=== PATIENT | male | born 1955 | race Caucasian/White ===

== ENCOUNTER 2019-09-09 13:43 | Outpatient (CLI) | payer BC, SELFPAY ==
--- NOTE | ~2019-09-09 | CT_ITS ---
EXAMINATION: CT lung screening DATE: 09/09/2019 14:13 INDICATION: Personal history of tobacco dependence, current smoker with 40 pack year history TECHNIQUE: Computed tomography (CT) of the chest was performed without intravenous contrast. The dose -length product (DLP) was 114.71 mGy-cm. Automated exposure control and iterative reconstruction tech [employer] were employed. COMPARISON: None FINDINGS: There is moderate emphysema. No suspicious pulmonary nodules are identified. The lungs are free of focal airspace opacities. There is no pleural effusion or pneumothorax. No pathologically enl arged thoracic lymph nodes are identified. The heart size is normal. There is calcified coronary abelino ry atherosclerosis. Incidental note is made of a diverticulum projecting from the posterior fundus of the stomach. There are bridging osteophytes at multiple levels in the spine, consistent with diffuse idiopathic skeletal hyperostosis (DISH). IMPRESSION: 1. Lung-RADS category 1: Negative. Continue annual screening with noncontrast low-dose chest CT in 12 months. Reviewed, dictated and finalized at location A. IMPRESSION: 1. Lung-RADS category 1: Negative. Continue annual screening with noncontrast l ow-dose chest CT in 12 months.
== END 2019-09-09 13:44 | disposition home or self-care (01) ==
PROVIDERS: PCP Family Medicine; Visit Provider Physician Assistant
DX: Z12.2 Encounter for screening for malignant neoplasm of respiratory organs (principal); F17.200 Nicotine dependence, unspecified, uncomplicated
CPT/HCPCS: G0297

== ENCOUNTER 2020-05-27 15:35 | Outpatient (CLI) | payer BC, SELFPAY ==
[2020-05-27 17:01] LABS: Erythrocyte Sedimentation Rate 36 mm/hr (0-20)
[2020-05-27 17:30] LABS: CRP 1.7 mg/dL (<1.0)
== END 2020-05-27 15:36 | disposition home or self-care (01) ==
LOC: ANHLAB 15:38
PROVIDERS: PCP Family Medicine; Visit Provider Orthopaedic Surgery
DX: T85.698A Other mechanical complication of other specified internal prosthetic devices, implants and grafts, initial encounter (principal); T84.039A Mechanical loosening of unspecified internal prosthetic joint, initial encounter
CPT/HCPCS: 36415; 85652; 86140

== ENCOUNTER 2020-06-10 15:43 | Outpatient (CLI) | payer BC, SELFPAY ==
--- NOTE | ~2020-06-10 | CT_ITS ---
EXAMINATION: CT knee RT wo con DATE: 06/10/2020 16:08 INDICATION: Chemical complication of implant at the right knee TECHNIQUE: High resolution computed tomography (CT) of the right knee was performed without intraveno us contrast. Additional sagittal and coronal reconstructions were performed. Automated exposure contr ol and iterative reconstruction technique were employed. The dose-length product was 586.69 mGy-cm. COMPARISON: Right knee radiograph dated 08/14/2017 FINDINGS: Right total knee arthroplasty with patellar resurfacing. Alignment appears near-anatomic and unchange d. No fracture. The femoral component appears well seated with no periprosthetic lucency to suggest l oosening. There are small regions of increased lucency underlying the medial margin of the trachea of the tibial component which measure up to 4 mm in maximal thickness. More diffuse thin band of lucenc y measuring up to 2-3 mm underlying the posterior aspect of the tibial tray, both at the medial and l ateral tibial plateaus. There are however spiculated bony trabecula which appear to cross the regions of increased lucency to contact the tibial tray which would argue against loosening or infection. Ve ry small right knee joint effusion at the suprapatellar pouch. Soft tissues are otherwise unremarkabl e. IMPRESSION: 1. Nonspecific very small right knee joint effusion. 2. Right total knee arthroplasty with small regions of increased lucency along the medial and posteri or aspects of the tibial tray but with intact bony trabecular appearing to cross portions of the jose on of increased lucency and loosening or infection/osteomyelitis is considered unlikely. Reviewed, dictated and finalized at location A. IMPRESSION: 1. Nonspecific very small right knee joint effusion. 2. Right total knee arthroplasty with small regions of increased lucency along the medial and posterior aspects of the tibial tray but with intact bony trabec ular appearing to cross portions of the region of increased lucency and looseni ng or infection/osteomyelitis is considered unlikely.
== END 2020-06-10 15:44 | disposition home or self-care (01) ==
PROVIDERS: PCP Family Medicine; Visit Provider Orthopaedic Surgery
DX: T84.032A Mechanical loosening of internal right knee prosthetic joint, initial encounter (principal); Y83.8 Other surgical procedures as the cause of abnormal reaction of the patient, or of later complication, without mention of misadventure at the time of the procedure; M25.461 Effusion, right knee
CPT/HCPCS: 73700

== ENCOUNTER 2020-07-28 06:51 | Outpatient (CLI) | payer BC, SELFPAY ==
--- NOTE | ~2020-07-28 | NM_ITS ---
EXAMINATION: NM bone 3 phase DATE: 07/28/2020 09:44 INDICATION: Mechanical comp cases of implant at the right knee. TECHNIQUE: 27.5 mCi Tc-99m HDP by intravenous route. Scintigrams of the bilateral knees were obtaine d in angiographic, blood pool, and delayed phases. COMPARISON: CT dated 06/10/2020 FINDINGS: Photopenic defects at both knees consistent with bilateral total knee arthroplasties. There is relati vely symmetric distribution of activity in both knees on the early angiographic phase images. There i s asymmetric increased uptake on the immediate blood pool images which becomes more prominent on the delayed images at the right medial tibial plateau underlying the tibial tray of the arthroplasty. Thi s corresponds to a region of increased lucency on the prior CT which suggests loosening. IMPRESSION: 1. Moderate asymmetric increased uptake underlying the medial tibial tray of a right total knee arth roplasty with corresponding periprosthetic lucency on prior CT which is suspicious for loosening. No associated asymmetric hyperemia on the angiographic phase images to suggest acute inflammation such a s in the setting of infection or fracture. Reviewed, dictated and finalized at location A. IMPRESSION: 1. Moderate asymmetric increased uptake underlying the medial tibial tray of a right total knee arthroplasty with corresponding periprosthetic lucency on ronald or CT which is suspicious for loosening. No associated asymmetric hyperemia on the angiographic phase images to suggest acute inflammation such as in the sett ing of infection or fracture.
== END 2020-07-28 06:52 | disposition home or self-care (01) ==
LOC: ANHIMG 06:57
PROVIDERS: PCP Family Medicine; Visit Provider Orthopaedic Surgery
DX: T85.698A Other mechanical complication of other specified internal prosthetic devices, implants and grafts, initial encounter (principal); T84.039A Mechanical loosening of unspecified internal prosthetic joint, initial encounter
CPT/HCPCS: 78315; A9561

== ENCOUNTER 2020-08-09 12:51 | Outpatient (CLI) | payer BC, SELFPAY ==
--- NOTE | ~2020-08-09 | US_ITS ---
EXAMINATION: US knee asp inj w image RT DATE: 08/09/2020 14:00 INDICATION: Mechanical complication of a right total knee arthroplasty with right knee pain. TECHNIQUE: The procedure including the risks and benefits was discussed with the patient. Risks discu ssed included bleeding and infection. The patient understood the risks and agreed to proceed. The sk in overlying the suprapatellar pouch of the right knee was prepped and draped in usual sterile fashio n. Anesthetic was administered with 1% lidocaine subcutaneously. An 22 gauge core biopsy needle was advanced under continuous ultrasound observation into the fluid at the suprapatellar pouch. 21 mL of slightly viscous, relatively clear yellow fluid was aspirated and sent to the lab for studies as ord ered by the referring physician. The needle was removed and the entry site was cleaned and dressed. Post procedure ultrasound demonstrated no hemorrhage. FINDINGS: Ultrasound images demonstrate aspiration needle within a small amount of fluid at the supra patellar pouch. Post drainage images demonstrate approximately 4 mm of thickened hypoechoic synovium on either side of the negligible amount of residual fluid. IMPRESSION: 1. Successful Ultrasound-guided right knee aspiration. Reviewed, dictated and finalized at location A.
[2020-08-09 20:19] LABS: Crystals Synovial Fluid None Seen (None Seen)
== END 2020-08-09 12:52 | disposition home or self-care (01) ==
PROVIDERS: PCP Family Medicine; Visit Provider Orthopaedic Surgery
DX: T85.698A Other mechanical complication of other specified internal prosthetic devices, implants and grafts, initial encounter (principal)
CPT/HCPCS: 20611; 87070; 87075; 87205; 89060

== ENCOUNTER → 2020-09-26 11:35 | Outpatient (CLI) | payer BC, SELFPAY ==
--- NOTE | ~2020-09-26 | CT_ITS ---
EXAMINATION:CT lung screening DATE: 09/26/2020 11:49 INDICATION: Personal history of tobacco dependence. Current smoker with 60 pack year history. TECHNIQUE: Computed tomography (CT) of the chest was performed without intravenous contrast. Automate d exposure control and iterative reconstruction technique were employed. The dose-length product (DLP ) was 180.53 mGy-cm. COMPARISON: Chest CT 09/09/2019 FINDINGS: There is mild emphysema. No pleural effusion. The heart size is normal. There are coronary artery calcifications. No pericardial effusion. There is mild thoracic spondylosis. There is a chroni c burst fracture of T3. IMPRESSION: 1. Lung-RADS category 1: Negative. Continue annual screening with noncontrast low-dose chest CT in 12 months. Reviewed, dictated and finalized at location A. IMPRESSION: 1. Lung-RADS category 1: Negative. Continue annual screening with noncontrast l ow-dose chest CT in 12 months.
== END ==
PROVIDERS: PCP Family Medicine; Visit Provider Physician Assistant
DX: Z12.2 Encounter for screening for malignant neoplasm of respiratory organs (principal); Z87.891 Personal history of nicotine dependence
CPT/HCPCS: 71271

== ENCOUNTER 2021-04-10 08:23 | Outpatient (CLI) | payer OTHER, SELFPAY ==
--- NOTE | ~2021-04-10 | NM_ITS ---
EXAMINATION: NM bone 3 phase DATE: 04/10/2021 12:22 INDICATION: Mechanical complication of implant. TECHNIQUE: 23 mCi Tc-99m HDP was administered intravenously. Scintigrams of the knees were obtained i n angiographic, blood pool, and delayed phases. COMPARISON: Right knee CT 06/10/2020, bone scan 07/28/2020, bilateral knee radiographs 08/14/2017 FINDINGS: Right knee demonstrates increased activity in distal femur, proximal tibia, and patella adj acent to the arthroplasty, worst at the proximal tibia. Left knee demonstrates increased activity in distal femur, proximal tibia, and patella adjacent to the arthroplasty. IMPRESSION: 1. Bilateral total knee arthroplasties with increased activity adjacent to the arthroplasties, which is very nonspecific and can be normal. The differential diagnosis includes loosening, infection, and normal variant. Correlation with repeat knee radiographs is recommended. Reviewed, dictated and finalized at location A. ER HELPER IMPRESSION: 1. Bilateral total knee arthroplasties with increased activity adjacent to the arthroplasties, which is very nonspecific and can be normal. The differential diagnosis includes loosening, infection, and normal variant. Correlation with r epeat knee radiographs is recommended.
== END 2021-04-10 08:24 | disposition home or self-care (01) ==
LOC: ANHIMG 08:28
PROVIDERS: PCP Family Medicine; Visit Provider Orthopaedic Surgery
DX: T85.698A Other mechanical complication of other specified internal prosthetic devices, implants and grafts, initial encounter (principal)
CPT/HCPCS: 78315; A9561

== ENCOUNTER 2021-04-17 10:25 | Outpatient (CLI) | payer OTHER, SELFPAY ==
[2021-04-17 12:40] LABS: Erythrocyte Sedimentation Rate 17 mm/hr (0-20)
== END 2021-04-17 10:26 | disposition home or self-care (01) ==
PROVIDERS: PCP Family Medicine; Visit Provider Orthopaedic Surgery
DX: T85.698D Other mechanical complication of other specified internal prosthetic devices, implants and grafts, subsequent encounter (principal)
CPT/HCPCS: 36415; 85652; 86140

== ENCOUNTER 2021-05-01 10:17 | Outpatient (CLI) | payer OTHER, SELFPAY ==
--- NOTE | ~2021-05-01 | US_ITS ---
EXAMINATION: US knee asp inj w image RT DATE: 05/01/2021 11:20 INDICATION: Other mechanical complication of prosthetic devices. TECHNIQUE: The procedure including the risks, benefits, and alternatives was discussed with the patie nt. Risks discussed included bleeding and infection. The patient understood the risks and agreed to p roceed. The skin overlying the right knee was prepped and draped in usual sterile fashion. Anestheti c was administered with 1% lidocaine subcutaneously. An 18 gauge spinal needle inserted into the kne e joint with sonographic guidance. Fluid was aspirated. The entry site was cleaned and dressed. Ther e were no immediate complications. FINDINGS: Ultrasound images demonstrate a right knee joint effusion. IMPRESSION: 1. Ultrasound-guided needle aspiration of 28 mL clear, yellow fluid from the right knee joint. Reviewed, dictated and finalized at location A. 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 Ultrasound-guided needle aspiration of 28 mL clear, yellow fluid from the ri t knee joint.
[2021-05-01 13:57] LABS: Appearance Synovial Fluid Hazy (Clear); Color Synovial Fluid Yellow (Colorless); Source Synovial Fluid Synovial fluid
[2021-05-01 13:58] LABS: Nucleated Cell Synovial Fluid 168 /uL (0-200)
[2021-05-01 13:59] LABS: RBC Synovial Fluid 1735 /uL (0-0)
[2021-05-01 14:18] LABS: Lymphocytes Synovial Fluid 86 %; Macrophages Synovial Fluid 6 %; Neutrophils Synovial Fluid 8 % (0-25)
== END 2021-05-01 10:18 | disposition home or self-care (01) ==
PROVIDERS: PCP Family Medicine; Visit Provider Orthopaedic Surgery
DX: T85.698D Other mechanical complication of other specified internal prosthetic devices, implants and grafts, subsequent encounter (principal)
CPT/HCPCS: 20611; 87070; 87075; 87205; 89051

== ENCOUNTER 2021-05-12 13:30 | Outpatient (CLI) | payer OTHER, SELFPAY ==
--- NOTE | ~2021-05-12 | CT_ITS ---
EXAMINATION: CT knee RT wo con DATE: 05/12/2021 14:02 INDICATION: Mechanical complication of implant. Right knee pain. TECHNIQUE: Computed tomography (CT) of the right knee was performed without intravenous contrast. Aut omated exposure control and iterative reconstruction technique were employed. The dose-length product was 402.27 mGy-cm. COMPARISON: Right knee CT 06/10/2020, bone scan 04/10/2021 FINDINGS: There is a total right knee arthroplasty with patellar resurfacing in near-anatomic alignme nt. No periprosthetic lucency to suggest loosening or infection. No fracture. There is a small knee j oint effusion. IMPRESSION: 1. Total right knee arthroplasty in near-anatomic alignment. 2. Small right knee joint effusion. Reviewed, dictated and finalized at location A. 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
== END 2021-05-12 13:31 | disposition home or self-care (01) ==
LOC: ANHIMG 13:38
PROVIDERS: PCP Family Medicine; Visit Provider Orthopaedic Surgery
DX: T85.698D Other mechanical complication of other specified internal prosthetic devices, implants and grafts, subsequent encounter (principal); M25.461 Effusion, right knee
CPT/HCPCS: 73700

== ENCOUNTER → 2021-10-02 09:41 | Outpatient (CLI) | payer OTHER, SELFPAY ==
--- NOTE | ~2021-10-02 | CT_ITS ---
EXAMINATION: CT lung screening DATE: 10/02/2021 09:53 INDICATION: tobacco use TECHNIQUE: Computed tomography (CT) of the chest was performed without intravenous contrast. Addition al 3D reconstructions utilizing coronal maximum intensity projection (MIP) were performed. Automated exposure control and iterative reconstruction technique were employed. The dose-length product was 10 1.28 mGy-cm. COMPARISON: 09/26/2020 FINDINGS: Mild emphysema. No suspicious pulmonary nodules, pneumonia, pulmonary edema or pleural effusion. Hear t size is normal. Atherosclerotic coronary artery calcifications. No pericardial effusion. Thoracic a sadaf is normal in caliber. No pathologically enlarged thoracic lymphadenopathy. 2.3 x 1.3 cm low-atte nuation left adrenal adenoma. Diffuse osteopenia with chronic T3 compression fracture with 50% anteri or vertebral body height loss. There are bridging osteophytes at multiple levels in the spine, consis tent with diffuse idiopathic skeletal hyperostosis (DISH). IMPRESSION: 1. Lung-RADS category 1: Negative. Continue annual screening with noncontrast low-dose chest CT in 12 months. Reviewed, dictated and finalized at location A. IMPRESSION: 1. Lung-RADS category 1: Negative. Continue annual screening with noncontrast l ow-dose chest CT in 12 months.
== END ==
PROVIDERS: PCP Family Medicine; Visit Provider Physician Assistant
DX: Z12.2 Encounter for screening for malignant neoplasm of respiratory organs (principal); Z87.891 Personal history of nicotine dependence
CPT/HCPCS: 71271

== ENCOUNTER 2022-10-10 10:09 | Outpatient (CLI) | payer OTHER, SELFPAY ==
--- NOTE | ~2022-10-10 | US_ITS ---
US renal BI 10/10/2022 11:04 Procedure: Realtime transabdominal ultrasound of the kidneys and bladder. Indication: Chronic kidney disease Comparison: 08/16/2017 Findings: Renal echotexture is normal bilaterally without hydronephrosis, contour deforming mass or r enal calculus. The right kidney measures 9.1 cm and left kidney measures 10 cm. Bladder within robert l limits. Impression: 1: Unremarkable renal ultrasound. No stones, masses or hydronephrosis. Reviewed, dictated and finalized at location A. Impression: 1: Unremarkable renal ultrasound. No stones, masses or hydronephrosis.
== END 2022-10-10 10:10 | disposition home or self-care (01) ==
PROVIDERS: PCP Family Medicine; Visit Provider Family Medicine
DX: I13.10 Hypertensive heart and chronic kidney disease without heart failure, with stage 1 through stage 4 chronic kidney disease, or unspecified chronic kidney disease (principal); N18.30 Chronic kidney disease, stage 3 unspecified
CPT/HCPCS: 76775

== ENCOUNTER → 2022-11-20 10:11 | Outpatient (CLI) | payer OTHER, SELFPAY ==
--- NOTE | ~2022-11-20 | CT_ITS ---
EXAMINATION: CT lung screening DATE: 11/20/2022 10:22 INDICATION: Personal history of nicotine dependence, prior smoker with 40 pack year history TECHNIQUE: Computed tomography (CT) of the chest was performed without intravenous contrast. The dose -length product (DLP) was 120.07 mGy-cm. Automated exposure control and iterative reconstruction tech [employer] were employed. COMPARISON: 10/02/2021 FINDINGS: There is moderate emphysema. The lungs are free of acute opacities. No pleural effusion or pneumothorax. No suspicious pulmonary nodules are identified. No pathologically enlarged thoracic lym ph nodes are identified. The heart size is normal. Calcified coronary artery atherosclerosis is noted . There are bridging osteophytes at multiple levels in the spine, consistent with diffuse idiopathic skeletal hyperostosis (DISH). IMPRESSION: 1. Lung-RADS category 1: Negative. Continue annual screening with noncontrast low-dose chest CT in 12 months. Reviewed, dictated and finalized at location L. IMPRESSION: 1. Lung-RADS category 1: Negative. Continue annual screening with noncontrast l ow-dose chest CT in 12 months.
== END ==
PROVIDERS: PCP Family Medicine; Visit Provider Family Medicine
DX: Z12.2 Encounter for screening for malignant neoplasm of respiratory organs (principal); Z87.891 Personal history of nicotine dependence
CPT/HCPCS: 71271

== ENCOUNTER 2023-01-16 01:21 | Day surgery (SDC) | payer OTHER, SELFPAY ==
[2023-01-02 13:43] VITALS: BMI 29.9
--- NOTE | 2023-01-15 15:56 | PM.HPGS ---
History of Present Illness History of Present Illness Consent: Risks, benefits, and alternatives have been discussed and questions answered. Patient agrees to proceed with procedure. Chief complaint: hx colon polyps Narrative: Daniel Loomis is a 67 year old male referred for colon cancer screening. His last colonoscopy was 5 years ago at which time 2 polyps were removed. Review of Systems Review of Systems: All systems reviewed & are unremarkable except as noted in HPI and below PMFSH Past Medical History Medical History CKD (chronic kidney disease), stage III Hypertensive heart and CKD Family History Family History Father Family history of cardiovascular disease Social History Social History Smoking packs per day: 1 Smoking cigarettes per day: 20.0 Years smoked: 40 Smoking pack-years: 40.00 Smoking status: Former smoker Tobacco type: cigarettes Alcohol intake: current Alcohol use details: occasional Substance use: never Substance use type: does not use Living arrangements: with family Occupation/Education: retired Gender identity (if verbalized by the patient): Male Sexual Orientation (if Verbalized by the Patient): Straight or Heterosexual Spiritual care concerns: No Meds Home Medications and Allergies Home Medications Medication Instructions Recorded Confirmed Type aspirin 81 mg tablet,delayed 81 mg PO DAILY #1 tablet 02/23/21 01/16/23 Rx release amlodipine 5 mg tablet See Rx Instructions .Route 07/09/22 01/16/23 Rx .COMPLEX #90 tabs lisinopril 20 mg tablet 20 mg PO DAILY #90 tabs 11/02/22 01/16/23 Rx Allergies Allergy/AdvReac Type Severity Reaction Status Date / Time bupropion [From Wellbutrin] AdvReac Intermediate Blister Verified 01/16/23 10:31 Exam Resp: Auscultation: clear to auscultation bilaterally Cardio: Rate: regular rate Rhythm: regular rhythm GI: GI Palp: Yes Soft to palpation and No Tenderness to palpation present (GI) Assessment and Plan Assessment and plan (1) Colon cancer screening: Code(s): Z12.11 - Encounter for screening for malignant neoplasm of colon Status: Acute Assessment and Plan: Colonoscopy with possible biopsy or polypectomy or cautery or injection of substances.
[2023-01-16 10:33] VITALS: BP 144/77; PULSE 82; RESP 17; TEMP 36.6; O2SAT 98; BMI 27.5
[2023-01-16] MEDS: LACTATED RINGERS 1,000 ML 150 ML IV CONT (10:43)
--- NOTE | 2023-01-16 10:50 | P.PNAN_ITS ---
Anes - Initial Pre Proc Eval Procedure: Operation Date: 01/16/23 13:30 Proposed Procedures p Colonoscopy - Andrew Hickman MD Date/Time: 01/16/23 10:50 Surgeon: Andrew Hickman MD Pre Op Diagnosis: hx colon polyps Patient Data Age: 67 Gender: M Height: 1.68 m Weight: 77.3 kg Last Vital Signs Temp 97.9 F 01/16/23 10:33 Pulse 82 01/16/23 10:33 Resp 17 01/16/23 10:33 BP 144/77 H 01/16/23 10:33 Pulse Ox 98 01/16/23 10:33 O2 Del Method Room Air 01/16/23 10:33 Allergies Allergy/AdvReac Type Severity Reaction Status Date / Time bupropion [From Wellbutrin] AdvReac Intermediate Blister Verified 01/16/23 10:31 Home Medications Medication Instructions Recorded Confirmed Type aspirin 81 mg tablet,delayed 81 mg PO DAILY #1 tablet 02/23/21 01/16/23 Rx release amlodipine 5 mg tablet See Rx Instructions .Route 07/09/22 01/16/23 Rx .COMPLEX #90 tabs lisinopril 20 mg tablet 20 mg PO DAILY #90 tabs 11/02/22 01/16/23 Rx Patient hx anesthesia problems: none Family hx anesthesia problems: none Results Review: All pre-operative results and documents have been reviewed as part of the pre-operative evaluation. [facility] Past Medical History Medical History CKD (chronic kidney disease), stage III Hypertensive heart and CKD Family History Family History Father Family history of cardiovascular disease Social History Social History Smoking packs per day: 1 Smoking cigarettes per day: 20.0 Years smoked: 40 Smoking pack-years: 40.00 Smoking status: Former smoker Tobacco type: cigarettes Alcohol intake: current Alcohol use details: occasional Substance use: never Substance use type: does not use Living arrangements: with family Occupation/Education: retired Gender identity (if verbalized by the patient): Male Sexual Orientation (if Verbalized by the Patient): Straight or Heterosexual Spiritual care concerns: No Anes - Eval Final PreProcedure Day of Procedure 01/16/23 10:50 Patient weight: normal Heart: regular rate and rhythm Lungs: clear to auscultation Airway: Mallampati scale Neurological: alert and oriented Last oral intake: >/= 8 hours ASA classification: III Emergent: no Anesthetic plan: proceed Anesthesia type and monitoring: general GIVS and standard monitoring Results Review: All pre-operative results and documents have been reviewed as part of the pre- operative evaluation. Informed Consent: The patient's anesthetic plan and its attendant risks and benefits were discussed with the patient/family/POA. Questions were solicited and answers provided to the satisfaction of the patient/family/POA.
[2023-01-16 11:31] VITALS: BP 77/51; PULSE 82; RESP 23; O2SAT 97
[2023-01-16 11:41] VITALS: BP 84/54; PULSE 80; RESP 19; O2SAT 99
[2023-01-16 11:51] VITALS: BP 137/55; PULSE 73; RESP 17; O2SAT 98
== END 2023-01-16 12:08 | disposition home or self-care (01) ==
PROVIDERS: PCP Family Medicine; Visit Provider Internal Medicine Gastroenterology
PROC: 0DJD8ZZ Inspection of Lower Intestinal Tract, Via Natural or Artificial Opening Endoscopic (ICD-10-PCS; CPT 45378; principal; 2023-01-16 13:30)
DX: Z12.11 Encounter for screening for malignant neoplasm of colon (principal); K64.8 Other hemorrhoids; I12.9 Hypertensive chronic kidney disease with stage 1 through stage 4 chronic kidney disease, or unspecified chronic kidney disease; N18.30 Chronic kidney disease, stage 3 unspecified; Z86.010 Personal history of colon polyps; Z87.891 Personal history of nicotine dependence; Z79.82 Long term (current) use of aspirin
CPT/HCPCS: G0105; J2001; J2704; J7120

== ENCOUNTER 2024-05-12 14:14 | Outpatient (CLI) | payer OTHER, SELFPAY ==
--- NOTE | ~2024-05-12 | XR_ITS ---
Lumbosacral Spine: AP, oblique, and lateral views Clinical History: Pain Findings: The normal lordotic curve is maintained. There is 8 mm anterolisthesis of L5 over S1. There is mild to moderate degenerative disc narrowing throughout the lumbar spine. There is severe facet a rthropathy throughout the lumbar spine, especially from L3 through S1. The sacroiliac joints are norm ally outlined. Impression: Advanced degenerative spondylosis, as above. 8 mm anterolisthesis of L5 over S1. Reviewed, dictated and finalized at location M. F CRUISER Impression: Advanced degenerative spondylosis, as above. 8 mm anterolisthesis of L5 over S1.
--- NOTE | ~2024-05-12 | CT_ITS ---
EXAMINATION:CT lung screening DATE: 05/12/2024 14:31 INDICATION: Personal history of nicotine dependence. Smoker who quit 3 years ago with 60 pack year hi story. TECHNIQUE: Computed tomography (CT) of the chest was performed without intravenous contrast. Automate d exposure control and iterative reconstruction technique were employed. The dose-length product (DLP ) was 107.55 mGy-cm. COMPARISON: Chest CT 11/20/2022 FINDINGS: There is no pneumonia or pleural effusion. The heart size is normal. There are coronary art alejandro calcifications. No pericardial effusion. There is a gallstone in the gallbladder, which is normal in size. There is mild thoracic spondylosis. There is a chronic compression fracture of T3. IMPRESSION: 1. Lung-RADS category 1: Negative. Continue annual screening with noncontrast low-dose chest CT in 12 months. Reviewed, dictated and finalized at location A. PLAYER IMPRESSION: 1. Lung-RADS category 1: Negative. Continue annual screening with noncontrast l ow-dose chest CT in 12 months.
== END 2024-05-12 14:15 | disposition home or self-care (01) ==
LOC: MICIMG 14:15
PROVIDERS: PCP Family Medicine; Visit Provider Physician Assistant
DX: Z12.2 Encounter for screening for malignant neoplasm of respiratory organs (principal); M54.50 Low back pain, unspecified; Z87.891 Personal history of nicotine dependence; M47.896 Other spondylosis, lumbar region
CPT/HCPCS: 71271; 72110

== ENCOUNTER 2024-07-08 13:21 | Outpatient (CLI) | payer OTHER, SELFPAY ==
--- NOTE | 2024-07-08 14:45 | NEURO_ITS ---
Impression: # Complains of numbness and weakness of hands. Non-diabetic. ? # Left ulnar neuropathy across the elbow. ? # Mild bilateral sensory Carpal Tunnel Syndrome. ? # Needle/EMG exam mildly abnormal. ?Nerve Conduction Studies Anti Sensory Summary Table ?Stim Site NR Peak (ms) P-T Amp (?V) Site1 Site2 Delta-P (ms) Dist (cm) Omi (m/s) Left Median Anti Sensory (2-3nd Digit) Wrist ? 3.8 59.2 Wrist 2-3nd Digit 3.8 14.0 37 Wrist ? 3.9 32.4 Wrist 2-3nd Digit 3.8 14.0 37 Right Median Anti Sensory (2-3nd Digit) Wrist ? 3.9 23.6 Wrist 2-3nd Digit 3.9 14.0 36 Wrist ? 3.9 22.7 Wrist 2-3nd Digit 3.9 14.0 36 Left Radial Anti Sensory (Base 1st Digit) Wrist ? 2.0 27.4 Wrist Base 1st Digit 2.0 0.0 Right Radial Anti Sensory (Base 1st Digit) Wrist ? 2.7 22.9 Wrist Base 1st Digit 2.7 0.0 Left Ulnar Anti Sensory (5th Digit) Wrist ? 3.2 57.7 Wrist 5th Digit 3.2 14.0 44 Right Ulnar Anti Sensory (5th Digit) Wrist ? 2.7 48.2 Wrist 5th Digit 2.7 14.0 52 Motor Summary Table ?Stim Site NR Onset (ms) O-P Amp (mV) Site1 Site2 Delta-0 (ms) Dist (cm) Omi (m/s) Left Median Motor (Abd Poll Brev) Wrist ? 3.9 0.4 Elbow Wrist 5.6 29.0 52 Elbow ? 9.5 0.8 Right Median Motor (Abd Poll Brev) Wrist ? 3.9 1.3 Elbow Wrist 5.6 28.0 50 Elbow ? 9.5 0.8 Left Ulnar Motor (Abd Dig Minimi) Wrist ? 2.9 7.0 A Elbow Wrist 5.9 28.0 47 A Elbow ? 8.8 5.7 B Elbow Wrist 3.5 19.0 54 B Elbow ? 6.4 3.1 Right Ulnar Motor (Abd Dig Minimi) Wrist ? 2.7 8.0 A Elbow Wrist 5.4 29.0 54 A Elbow ? 8.1 5.1 B Elbow Wrist 3.5 18.0 51 B Elbow ? 6.2 3.2 F Wave Studies ?NR F-Lat (ms) L-R F-Lat (ms) Left Median (Mrkrs) (Abd Poll Brev) ? 29.38 0.88 Right Median (Mrkrs) (Abd Poll Brev) ? 28.50 0.88 Left Ulnar (Mrkrs) (Abd Dig Min) ? 29.32 0.70 Right Ulnar (Mrkrs) (Abd Dig Min) ? 30.02 0.70 EMG ?Side Muscle Nerve Root Ins Act Fibs Amp Dur Recrt Comment Right 1stDorInt Ulnar C8-T1 Nml Nml Nml Nml Nml Right Ext Indicis Radial (Post Int) C7-8 Nml Nml Nml Nml Nml Right Ext Digitorum Radial (Post Int) C7-8 Nml Nml Nml Nml Nml Right BrachioRad Radial C5-6 Nml Nml Nml Nml Nml Right PronatorTeres Median C6-7 Nml Nml Nml Nml Nml Right Abd Poll Brev Median C8-T1 Nml Nml Nml Nml Nml Right ABD Dig Min Ulnar C8-T1 Nml Nml Nml Nml Nml Right FlexPolLong Median (Ant Int) C7-8 Nml Nml Nml Nml Nml Right Abd Poll Long Radial (Post Int) C7-8 Nml Nml Nml Nml Nml Left 1stDorInt Ulnar C8-T1 Nml Nml Nml >12ms +1 Left Ext Indicis Radial (Post Int) C7-8 Nml Nml Nml Nml Nml Left Ext Digitorum Radial (Post Int) C7-8 Nml Nml Nml Nml Nml Left BrachioRad Radial C5-6 Nml Nml Nml Nml Nml Left PronatorTeres Median C6-7 Nml Nml Nml Nml Nml Left Abd Poll Brev Median C8-T1 Nml Nml Nml Nml Nml Left ABD Dig Min Ulnar C8-T1 Nml Nml Nml >12ms +1 Left FlexPolLong Median (Ant Int) C7-8 Nml Nml Nml Nml Nml Left Abd Poll Long Radial (Post Int) C7-8 Nml Nml Nml Nml Nml MTDD
--- OUTSIDE RECORDS SUMMARY | 2024-07-08 15:08 | XMS_ITS | Referral Summary ---
Author Organization [facility] [address] Address [address] [place] [address] Care Team Providers Care Pediatric Neurologist Name Role Phone Tc Hightower MD Primary Care Provider Allergies Active Allergy Reactions Criticality Noted Date Comments Bupropion Blisters High 12/11/2021 Medications lisinopril (PRINIVIL,ZESTR IL) 20 mg tabletIndicatio ns:hypertension Take 1 tablet (20 mg total) by mouth every morning 5 05/24/2018 Active acetaminophen (TYLENOL) 500 mg tabletIndicatio ns:Pain Take 2 tablets (1,000 mg total) by mouth every 8 (eight) hours 90 tablet 12/27/2021 Active aspirin 81 mg enteric coated tabletIndicatio ns:prevention of thrombosis Take 1 tablet (81 mg total) by mouth 2 (two) times a day 60 tablet 12/27/2021 Active amLODIPine (NORVASC) 5 mg tablet Take 1 tablet (5 mg total) by mouth daily 10/05/2022 Active tamsulosin (FLOMAX) 0.4 mg extended release capsule TAKE ONE CAPSULE BY MOUTH DAILY AT BEDTIME 10/19/2023 Active oxyBUTYnin XL (DITROPAN XL) 15 mg 24 hr tablet Take 1 tablet (15 mg total) by mouth daily 09/18/2023 Active Active Problems Problem Noted Date Diagnosed Date Failed total left knee replacement, initial enco unter 12/26/2021 Failed total right knee replacement 09/06/2021 Overview (09/06/2021): Added automatically from request for surgery [id number] Coronary artery disease invo lving [place] coronary artery of jam[place] heart without angina pectoris 05/29/2018 Social History Tobacco Use Types Packs/Day Years Used Date Smoking Tobacco: Former Cigarettes 0.5 45.4 1 977 - 08/2021 Smokeless Tobacco: Never Tobacco Cessation:Counseling Given: Not Answered Alcohol Use Standard Drinks/Week Comments Yes 0 (1 standard drink = 0.6 oz pur e alcohol) SOCIAL DRINKER AUDIT-C Answer Date Recorded Q1: How often do you have a drink containing alc ohol? 2-4 times a month 12/26/2021 Q2: How many drinks containi ng alcohol do you have on a typical day when you are drinking? 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 Gender Identity Not on file Sexual Orientation Not on file Last Filed Vital Signs Vital Sign Reading Time Taken Comments Blood Pressure 122/70 12/10/2023 8:46 AM CDT Pulse 72 12/10/2023 8:46 AM CDT Temperature 35.7 C (96.2 F) 01/10/2022 9:18 AM CDT Respiratory Rate 18 01/10/2022 9:18 AM CDT Oxygen Saturation 97% 12/10/2023 8:46 AM CDT Inhaled Oxygen Concentration - - Weight 84 kg (185 lb 1.6 oz) 12/10/2023 8:46 AM CDT Height 165.1 cm (5' 5 ) 12/10/2023 8:46 AM CDT Body Mass Index 30.8 12/10/2023 8:46 AM CDT Plan of Treatment Not on file Medical Devices Implanted Type Area Town Clerk Device Identifier Shelf Expiration Date Model / Serial / Lot [employer] Attune L50 Mm Revision Full Coated Knee Sleeve Femoral Porocoat Sterile Latex Free [id number] - [id number] Implanted:Qty: 1 on 12/26/2021 by Avtar Ibarra MD at [facility] Right: Knee [employer] [id number] 04/17/2029 [id number] / / [id number] [employer] Revision Cement Constrain Knee Right 6 Component Femoral Attune Sterile [id number] - [id number] Implanted:Qty: 1 on 12/26/2021 by Avtar Ibarra MD at [facility] Right: Knee [employer] 10/16/2031 [id number] / / [id number] [employer] Smartset Medium Viscosity Cement 40gm Bone Gentamicin [id number] - [id number] Implanted:Qty: 1 on 12/26/2021 by Avtar Ibarra MD at [facility] Right: Knee [employer] 12/15/2022 [id number] / / [id number] [employer] Attune H16 Mm Revision Constrain Rotate Platform Knee 6 Insert Tibial Aox Sterile [id number] - [id number] Implanted:Qty: 1 on 12/26/2021 by Avtar Ibarra MD at [facility] Right: Knee [employer] 03/17/2023 [id number] / / [id number] [employer] Attune 20mm 60mm Revision Press Fit Knee Stem Femoral Sterile Latex Free [id number] - [id number] Implanted:Qty: 1 on 12/26/2021 by Avtar Ibarra MD at [facility] Right: Knee [employer] [id number] 07/16/2031 [id number] / / [id number] [employer] Attune Revision Full Coated Knee 45 Mm Sleeve Tibial Porocoat Sterile Latex Free [id number] - [id number] Implanted:Qty: 1 on 12/26/2021 by Avtar Ibarra MD at [facility] Right: Knee [employer] [id number] 11/16/2031 [id number] / / [id number] [employer] Attune Cement Revision Rotate Platform Knee 6 Baseplate Tibial [id number] - [id number] Implanted:Qty: 1 on 12/26/2021 by Avtar Ibarra MD at [facility] Right: Knee [employer] 05/16/2031 [id number] / / [id number] [employer] Attune 20mm 60mm Revision Press Fit Knee Stem Femoral Sterile Latex Free [id number] - [id number] Implanted:Qty: 1 on 12/26/2021 by Avtar Ibarra MD at [facility] Right: Knee [employer] 07/16/2031 [id number] / / [id number] [employer] Attune H4 Mm Revision Cement Knee Distal 6 Augment Femoral Sterile Latex Free [id number] - [id number] Implanted:Qty: 1 on 12/26/2021 by Avtar Ibarra MD at [facility] Right: Knee [employer] [id number] 09/15/2031 [id number] / / [id number] [employer] Attune H4 Mm Revision Cement Knee Distal 6 Augment Femoral Sterile Latex Free [id number] - [id number] Implanted:Qty: 1 on 12/26/2021 by Avtar Ibarra MD at [facility] Right: Knee [employer] 09/14/2030 [id number] / / [id number] Explanted Type Area Town Clerk Device Identifier Shelf Expiration Date Model / Serial / Lot Knee Explanted:Qty: 3 on 12/26/2021 by Avtar Ibarra MD at [facility] Bilateral: Knee Description:Femoral, tibia, poly components removed and disposed of per policy. Insurance [facility] [id number] [id number] [facility] Advance Directives For more information, please contact: [phone] * Full Code (Latest Code Status on File) Date Activated Date Inactivated Comments 12/26/2021 5:24 PM 12/27/2021 4:44 PM Care Teams Pediatric Neurologist Relationship Specialty Start Date End Date Tc Hightower MD [address] [place] [id number] PCP - General Family Medicine 05/27/18
--- OUTSIDE RECORDS SUMMARY | 2024-07-08 15:08 | XMS_ITS | Clinical Summary ---
Author Organization [facility] [address] Address [address] [place] [address] Care Team Providers Care Station Repairer Name Role Phone Tc Hightower MD Primary [...] (09/06/2021): Added automatically from request for surgery [id number] Coronary artery disease invo lving [place] coronary artery of [place] heart without angina pectoris 05/29/2018 Surgical History Surgery Date Site/Laterality Comments REPLACEMENT TOTAL KNEE JOINT REPLACEMENT 08/14/2017 COLONOSCOPY MULTIPLE TOOTH EXTRACTIONS Medical History Medical History Date Comments CAD (coronary artery disease) Hypertension Family History Medical History Relation Name Comments Heart attack Father Brent Anesthesia problems Neg Hx Relation Name Status Comments Father Brent Social History Tobacco Use Types Packs/Day Years [...] on file 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 Gender Identity Not on file Sexual Orientation Not on file Obstetrics History Last Filed Vital Signs Vital Sign Reading [...] 12/10/2023 8:46 AM CDT Plan of Treatment Health Maintenance Due Date Last Done Comments Colon Cancer Screening-Colonoscopy 1954 Depression Screening 1954 Hepatitis C Screening 1954 Prostate Cancer Screening-PSA 1954 DTaP/Tdap/Td Vaccine (1 - Tdap) 1965 Hepatitis B Screening 1972 Lung Cancer Screening 2004 Pneumococcal vaccine 65+ (1 of 1 - PCV) 2004 Zoster Vaccine (1 of 2) 2004 Abdominal Aortic Aneurysm (A AA) Screen 11/24/2019 Well Visit 65+ 11/24/2019 Fall Risk Assessment 12/27/2022 12/27/2021 Covid-19 Vaccine ( season) 2023 01/09/2021, 06/03/2020, 05/13/2020 Influenza Vaccine (#1) 2023 Medical Devices Implanted Type Area Mold Mechanic Device Identifier Shelf Expiration Date Model / Serial / Lot [employer] Attune L50 Mm Revision Full Coated Knee Sleeve Femoral Porocoat Sterile Latex Free [id number] - [id number] Implanted:Qty: 1 on 12/26/2021 by Avtar Ibarra MD at [facility] Right: Knee [employer] [id number] 04/17/2029 [id number] / / [id number] [employer] Revision Cement Constrain Knee Right 6 Component Femoral Attune Sterile [id number] - [id number] Implanted:Qty: 1 on 12/26/2021 by Avtar Ibarra MD at [facility] Right: Knee [employer] 10/16/2031 [id number] / / [id number] [employer] Smartset Medium Viscosity Cement 40gm Bone Gentamicin 080142730 - [id number] Implanted:Qty: 1 on 12/26/2021 by Avtar Ibarra MD at [facility] Right: Knee [employer] 12/15/2022 [id number] / / [id number] [employer] Attune H16 Mm Revision Constrain Rotate Platform Knee 6 Insert Tibial Aox Sterile [id number] - [id number] Implanted:Qty: 1 on 12/26/2021 by Avtar Ibarra MD at [facility] Right: Knee [employer] 03/17/2023 [id number] / / [id number] [employer] Attune 20mm 60mm Revision Press Fit Knee Stem Femoral Sterile Latex Free [id number] - [id number] Implanted:Qty: 1 on 12/26/2021 by Avtar Ibarra MD at [facility] Right: Knee [employer] [id number] 07/16/2031 [id number] / / [id number] [employer] Attune Revision Full Coated Knee 45 Mm Sleeve Tibial Porocoat Sterile Latex Free [id number] - [id number] Implanted:Qty: 1 on 12/26/2021 by Avtar Ibarra MD at [facility] Right: Knee [employer] [id number] 11/16/2031 [id number] / / [id number] [employer] Attune Cement Revision Rotate Platform Knee 6 Baseplate Tibial [id number] - [id number] Implanted:Qty: 1 on 12/26/2021 by Avtar Ibarra MD at [facility] Right: Knee [employer] 05/16/2031 [id number] / / [id number] [employer] Attune 20mm 60mm Revision Press Fit Knee Stem Femoral Sterile Latex Free [id number] - [id number] Implanted:Qty: 1 on 12/26/2021 by Avtar Ibarra MD at [facility] Right: Knee [employer] 07/16/2031 [id number] / / [id number] [employer] Attune H4 Mm Revision Cement Knee Distal 6 Augment Femoral Sterile Latex Free [id number] - [id number] Implanted:Qty: 1 on 12/26/2021 by Avtar Ibarra MD at [facility] Right: Knee [employer] [id number] 09/15/2031 [id number] / / [id number] [employer] Attune H4 Mm Revision Cement Knee Distal 6 Augment Femoral Sterile Latex Free 093782527 - [id number] Implanted:Qty: 1 on 12/26/2021 by Avtar Ibarra MD at [facility] Right: Knee [employer] 09/14/2030 [id number] / / [id number] Explanted Type Area Mold Mechanic Device Identifier Shelf Expiration Date Model / Serial / Lot Knee Explanted:Qty: 3 on 12/26/2021 by Avtar Ibarra MD at [facility] Bilateral: Knee Description:Femoral, tibia, poly components removed and disposed of per policy. Insurance [facility] Member Subscriber Plan / Payer ( fective 2021-Present) Name:Daniel Loomis Relation to Subscriber:Self Name:Daniel Loomis Payer ID:[id number] (NAIC) Type:MEDICARE RISK OTHER Address: [place] [id number] [facility] Member Subscriber Plan / Payer (Ef fective 2021-Present) Name:Vladislav Daniel R Relation to Subscriber:Self Name:Daniel Loomis Payer ID:[id number] (NAIC) Type:MEDICARE RISK OTHER Address: [place] [id number] [facility] Advance Directives For more information, please contact: [phone] * Full Code (Latest Code Status on File) Date Activated Date Inactivated Comments 12/26/2021 5:24 PM 12/27/2021 4:44 PM Care Teams Station Repairer Relationship Specialty Start Date End Date Tc Hightower MD [address] [facility] [address] [place] [address] PCP - General Family Medicine 05/27/18
== END 2024-07-08 13:22 | disposition home or self-care (01) ==
PROVIDERS: PCP Family Medicine; Visit Provider Plastic Surgery
DX: G56.03 Carpal tunnel syndrome, bilateral upper limbs (principal); G56.22 Lesion of ulnar nerve, left upper limb; G56.21 Lesion of ulnar nerve, right upper limb
CPT/HCPCS: 95886; 95911

== ENCOUNTER 2024-08-06 09:27 | Outpatient (CLI) | payer OTHER, SELFPAY ==
--- NOTE | ~2024-08-06 | XR_ITS ---
Left Shoulder Technique: AP and axillary views were obtained. Clinical History: Pain Findings: No fracture or dislocation is seen. Osseous alignment is anatomic. The glenohumeral joint i s intact. There is mild AC joint degenerative change. Soft tissues are unremarkable. Impression: Mild AC joint degenerative change. Reviewed, dictated and finalized at location . Impression: Mild AC joint degenerative change.
== END 2024-08-06 09:28 | disposition home or self-care (01) ==
PROVIDERS: PCP Family Medicine; Visit Provider Physician Assistant Medical
DX: M19.012 Primary osteoarthritis, left shoulder (principal)
CPT/HCPCS: 73030

== ENCOUNTER 2024-12-03 09:15 | Outpatient (CLI) | payer OTHER, SELFPAY ==
--- OUTSIDE RECORDS SUMMARY | 2024-12-03 09:44 | XMS_ITS | Clinical Summary ---
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 Gender Identity Not on file Sexual Orientation [...] 8:46 AM CDT Height 165.1 cm (5' 5) 12/10/2023 8:46 AM CDT Body Mass Index 30.8 12/10/2023 8:46 AM CDT Plan of Treatment Health Maintenance Due Date Last Done Comments Colon Cancer Screening-Colonoscopy 1954 Depression Screening 1954 Hepatitis C Screening 1954 DTaP/Tdap/Td Vaccine (1 - Tdap) 1965 Hepatitis B Screening 1972 Lung Cancer Screening 2004 Pneumococcal vaccine 65+ (1 of 1 - PCV) 2004 Zoster Vaccine (1 of 2) 2004 Abdominal Aortic Aneurysm (A AA) Screen 11/24/2019 Well Visit 65+ 11/24/2019 Fall Risk Assessment 12/27/2022 12/27/2021 Covid-19 Vaccine ( season) 2024 01/09/2021, 06/03/2020, 05/13/2020 Influenza Vaccine (#1) 2024 Medical Devices Implanted Type Area Tubular Products Fabricator Device Identifier Shelf Expiration Date Model / Serial / Lot [employer] Attune L50 Mm Revision Full Coated Knee Sleeve Femoral Porocoat Sterile Latex Free [id number] - [id number] Implanted:Qty: 1 on 12/26/2021 by Avtar Ibarra MD at [facility] Right: Knee [employer] [id number] 04/17/2029 [id number] / / [id number] [employer] Revision Cement Constrain Knee Right 6 Component Femoral Attune Sterile [id number] - [id number] Implanted:Qty: 1 on 12/26/2021 by Avtar Ibarra MD at [facility] Right: Knee [employer] 10/16/2031 [id number] / / [id number] [employer] Smartset Medium Viscosity Cement 40gm Bone Gentamicin [id number] - [id number] Implanted:Qty: 1 on 12/26/2021 by Avtar Ibarra MD at [facility] Right: Knee [employer] 12/15/2022 [id number] / / [id number] [employer] Attune H16 Mm Revision Constrain Rotate Platform Knee 6 Insert Tibial Aox Sterile [id number] - [id number] Implanted:Qty: 1 on 12/26/2021 by Avtar Ibarra MD at [facility] Right: Knee [employer] 03/17/2023 [id number] / / [id number] [employer] Attune 20mm 60mm Revision Press Fit Knee Stem Femoral Sterile Latex Free [id number] - [id number] Implanted:Qty: 1 on 12/26/2021 by Avtar Ibarra MD at [facility] Right: Knee [employer] [id number] 07/16/2031 [id number] / / [id number] [employer] Attune Revision Full Coated Knee 45 Mm Sleeve Tibial Porocoat Sterile Latex Free 789049050 - [id number] Implanted:Qty: 1 on 12/26/2021 by Avtar Ibarra MD at [facility] Right: Knee [employer] [id number] 11/16/2031 [id number] / / [id number] [employer] Attune Cement Revision Rotate Platform Knee 6 Baseplate Tibial [id number] - [id number] Implanted:Qty: 1 on 12/26/2021 by Avtar Ibarra MD at [facility] Right: Knee [employer] 05/16/2031 [id number] / / [id number] [employer] Attune 20mm 60mm Revision Press Fit Knee Stem Femoral Sterile Latex Free 800632891 - [id number] Implanted:Qty: 1 on 12/26/2021 by Avtar Ibarra MD at [facility] Right: Knee [employer] 07/16/2031 [id number] / / [id number] [employer] Attune H4 Mm Revision Cement Knee Distal 6 Augment Femoral Sterile Latex Free [id number] - [id number] Implanted:Qty: 1 on 12/26/2021 by Avtar Ibarra MD at [facility] Right: Knee [employer] [id number] 09/15/2031 [id number] / / [id number] [employer] Attune H4 Mm Revision Cement Knee Distal 6 Augment Femoral Sterile Latex Free [id number] - [id number] Implanted:Qty: 1 on 12/26/2021 by Avtar Ibarra MD at [facility] Right: Knee [employer] 09/14/2030 [id number] / / [id number] Explanted Type Area Tubular Products Fabricator Device Identifier Shelf Expiration Date Model / Serial / Lot Knee Explanted:Qty: 3 on 12/26/2021 by Avtar Ibarra MD at [facility] Bilateral: Knee Description:Femoral, tibia, poly components removed and disposed of per policy. Insurance [facility] Advance Directives For more information, please contact: [phone] * Full Code (Latest Code Status on File) Date Activated Date Inactivated Comments 12/26/2021 5:24 PM 12/27/2021 4:44 PM Care Teams Director Of Exhibits Relationship Specialty Start Date End Date Tc Hightower MD [address] [facility] [address] [place] [address] PCP - General Family Medicine 05/27/18
[2024-12-03 10:08] LABS: INR 1.1; Partial Thromboplastin Time 28.0 Seconds (22.3-36.8); Prothrombin Time 14.0 Seconds (11.1-14.7)
== END 2024-12-03 09:16 | disposition home or self-care (01) ==
LOC: ANHSURGERY 09:19
PROVIDERS: Anesthesiology; PCP Family Medicine; Visit Provider Plastic Surgery
DX: N18.30 Chronic kidney disease, stage 3 unspecified (principal); Z01.818 Encounter for other preprocedural examination
CPT/HCPCS: 36415; 85610; 85730

== ENCOUNTER 2024-12-09 01:01 | Day surgery (SDC) | payer OTHER, SELFPAY ==
--- NOTE | 2024-11-30 14:49 | PC.NURSE ---
Report to the Outpatient Waiting Room, entrance under the green pavilion located off [facility], at time _9:45 am on date _12/09/24 . Planned Procedure Time: _11:45 am .? Time changes happen often and if your time is changed the preop area will call you the afternoon before. - You and your visitor will be asked to self-screen and do not enter if you have any COVID symptoms. Please call surgeon if you need to reschedule. - A mask is optional within the hospital at this time. nothing to drink 8 hours prior to surgery per dr uribe - No food from midnight until time of surgery and no smoking, or chewing tobacco (or any form of nicotine). No chewing gum, candy or mints. - Take only the following medications with a SIP of water on the morning of surgery: ____none DO NOT STOP ANY OF YOUR OTHER PRESCRIPTION MEDICATIONS PRIOR TO SURGERY EXCEPT THE FOLLOWING Hold all vitamins and supplements for 3 days per anesthesiologist. Medications to discontinue per physician aspirin per dr uribe Please no make-up, nail croatian, hairspray, perfume, deodorant, or body powder the day of surgery.? No jewelry (including any body piercings) or valuables the day of surgery, leave them at home.? Please take a shower or bath the night before, or the morning of, surgery with an antibacterial soap.? Wear comfortable, loose fitting clothing.? Children are encouraged to wear pajamas. - Jewelry must be removed prior to entering the operating room.? Rings and piercings that are not removed may be cut off. - The hospital will not accept responsibility for valuables.? - Please leave all valuables, including medications, at home the day of surgery. If you are going home after surgery, a licensed bobtail driver must drive you home.? - NO public transportation without another adult if you receive anesthesia. - We recommend that an adult stay with you for 24 hours following discharge. - We also recommend that you do not drive, make important decision, drink alcoholic beverages, or take any drugs that were not prescribed by your health care provider for at least 24 hours after your discharge time. For Pediatric surgeries, we recommend two adults accompany the child home. Follow any additional instructions given to you from your surgeon. Telephone instructions given to ___patient and asked if any additional questions and then verbalized understanding. Patient advised to call surgeon office or pre surgery nurse liaison [phone] if any additional questions.
[2024-11-30 15:09] VITALS: BMI 31.8
--- NOTE | 2024-12-09 06:59 | WPDHPUPDATE1 ---
History and Physical Update Update Date/Time: 12/09/24 06:59 Patient seen and examined in pre-operative holding area. No interval change in medical history or symptoms. Patient recalls previous discussion of benefits and alternatives to procedure. Continues to desire to proceed with left endoscopic possible open carpal tunnel release and left cubital tunnel release. Reviewed procedure, post-op expectations and risks including but not limited to bleeding, infection, injury to tendon/nerve/vessel, decreased hand function, stiffness, RSD, no change or worsening of symptoms. I discussed the possible use of assistants and their participation in the case. Patient stated understanding and signed the consent form wishing to proceed.
--- NOTE | 2024-12-09 06:59 | W.PM.PROC2 ---
Procedure Note - Detailed Date of Procedure 12/09/24 Pre-op Diagnosis jayme carpal and cubital tunnel synd Post-op Diagnosis Same Procedure Performed left ectr and CuTR Surgeon Rolando Panda MD Pulmonologist darrell islas pa-c Anesthesia MAC Description of Procedure INFORMED CONSENT: The patient was seen and examined and marked in the pre-op area.? The patient signed the consent form. PROCEDURE IN DETAIL:The patient taken back to OR on the stretcher in supine position. Time out performed with anesthesia, surgeon and staff agreeing on patient's name site and surgery to be performed SCDs were placed on the lower extremities and inflated. A tourniquet was placed on {left} upper extremity and antibiotics given IV After anesthesia administered sedation I injected {10}cc 1%lido with epi and 0.5% marcaine plain at the operative sites The?{left upper extremity}?was prepped and draped in sterile fashion the??{left upper extremity} was? exsanguinated with Esmarch bandage and tourniquet inflated to 250mmHg I made a transverse incision in the {left} volar distal wrist crease through skin and dermis with 15 blade scalpel.? Littler scissors spread down to antebrachial fascia. A small incision was made in antebrachial fascia allowing access to Carpal tunnel. I proceeded with sequential dilation staying in line with the ring finger and hugging the hook of the hamate.? I then used the synovial elevator to free any adhesions from the underside of the transverse carpal ligament. Next I was able to insert the Microaire endoscopic carpal tunnel device with direct visualization of the transverse fibers on the monitor and proceeded with complete segmental retrograde release of the ligament in its entirety.? I irrigated with normal saline and closed with 4-0 monocryl for dermis and subcuticular closure. I next proceeded with making a longitudinal incision between two heads for flexor carpi ulnaris at end of {left} cubital tunnel with 15 blade scalpel.? Littler scissors were used to spread down to FCU fascia.? An incision was made in FCU fascia and ulnar nerve identified exiting cubital tunnel.? I proceeded with complete retrograde release of the cubital tunnel including 7cm proximal for [facility] Billing Surgery - Charge Forward: Surgery Billing ([id number] same for darrell adding )
[2024-12-09] MEDS: LACTATED RINGERS 1,000 ML 30 ML IV CONT (10:30)
[2024-12-09] MEDS: ACETAMINOPHEN 500 MG TABLET 1000 MG PO (11:31)
[2024-12-09 11:32] VITALS: BP 207/88; PULSE 64; RESP 16; TEMP 36.8; O2SAT 98
[2024-12-09 12:20] VITALS: BP 183/89
--- NOTE | 2024-12-09 13:12 | WPDANESEPPF ---
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 Patient Data Age: 69 Gender: M Height: 1.68 m Weight: 88.3 kg Last Vital Signs Temp 98.2 F 12/09/24 11:32 Pulse 64 12/09/24 11:32 Resp 16 12/09/24 11:32 BP 183/89 H 12/09/24 12:20 Pulse Ox 98 12/09/24 11:32 O2 Del Method Room Air 12/09/24 11:32 Allergies Allergy/AdvReac Type Severity Reaction Status Date / Time bupropion (From Wellbutrin) AdvReac Intermediate Blister Verified 12/09/24 11:29 Home Medications ?Medication ?Instructions ?Recorded ?Confirmed ?Type aspirin 81 mg tablet,delayed 81 mg PO DAILY #1 tablet 02/23/21 11/30/24 Rx release tamsulosin 0.4 mg capsule 0.4 mg PO BID #180 caps 09/23/23 11/30/24 Rx oxybutynin chloride 15 mg 15 mg PO DAILY 08/06/24 11/30/24 History tablet,extended release 24 hr lisinopril 20 mg tablet 20 mg PO DAILY #90 tabs 09/09/24 11/30/24 Rx tramadol 50 mg tablet 50 mg PO Q6H PRN pain #12 tabs 12/09/24 Rx Patient hx anesthesia problems: none Family hx anesthesia problems: none Results Review: All pre-operative results and documents have been reviewed as part of the pre-operative evaluation. [facility] Past Medical History Medical History Right hip pain Lumbar radiculopathy BPH w urinary obs/LUTS CKD (chronic kidney disease), stage III Hypertensive heart and CKD Family History Family History Father Family history of cardiovascular disease Mother Diabetes mellitus Social History Social History Social History: Caffeine-soda Smoking packs per day: 0 Smoking cigarettes per day: 0.0 Years smoked: 40 Smoking pack-years: 0.00 Smoking status: Former smoker Tobacco type: cigarettes Smoking end date: 03/18/19 Alcohol intake: current Alcohol use details: occasional Substance use: never Substance use type: does not use Living arrangements: with family Occupation/Education: retired Gender identity (if verbalized by the patient): Male Sexual Orientation (if Verbalized by the Patient): Straight or Heterosexual Spiritual care concerns: No Anes - Eval Final PreProcedure Day of Procedure 12/09/24 13:12 Patient weight: normal Lungs: normal air movement Airway: Mallampati scale class II and special considerations (Edentulous. ) Neurological: alert and oriented Last oral intake: >/= 8 hours ASA classification: III Emergent: no Anesthetic plan: proceed Anesthesia type and monitoring: general GIVS and standard monitoring Results Review: All pre-operative results and documents have been reviewed as part of the pre-operative evaluation. HTN, CKD 3, ex smoker, quit 2019. 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 Informed Consent: The patient's anesthetic plan and its attendant risks and benefits were discussed with the patient/family/POA. Questions were solicited and answers provided to the satisfaction of the patient/family/POA.
[2024-12-09] MEDS: ceFAZolin 2 GM in SODIUM CHLORIDE 0.9% IV 50 ML 100 ML IVPB (13:27)
[2024-12-09] MEDS: LIDO 1%/EPINEPHRINE 1:100,000 20 ML VIAL 10 ML INFILTRATE (13:27)
[2024-12-09 13:55] VITALS: BP 104/53; PULSE 70; RESP 14; O2SAT 98
[2024-12-09 14:25] VITALS: BP 169/54; PULSE 62
== END 2024-12-09 14:51 | disposition home or self-care (01) ==
PROVIDERS: PCP Family Medicine; Visit Provider Plastic Surgery
PROC: 01N54ZZ Release Median Nerve, Percutaneous Endoscopic Approach (ICD-10-PCS; CPT 29848; principal; 2024-12-09 12:15)
DX: G56.02 Carpal tunnel syndrome, left upper limb (principal); G56.22 Lesion of ulnar nerve, left upper limb
CPT/HCPCS: 29848; 64718; J0690; A9270; J2003; J2004; J2405; J2704; J3010; J7120

== ENCOUNTER 2024-12-29 07:00 | Outpatient (CLI) | payer OTHER, SELFPAY ==
--- NOTE | ~2024-12-29 | MR_ITS ---
EXAMINATION: MR shoulder LT wo con DATE: 12/29/2024 07:41 INDICATION: Left shoulder pain TECHNIQUE: Magnetic resonance imaging (MRI) of the left shoulder was performed without intravenous contrast. Sequences included axial PD-weighted FS FSE, coronal oblique PD-weighted FS FSE, coronal oblique T2-weighted FS FSE, sagittal PD-weighted FS FSE, and sagittal T1-weighted SE. COMPARISON: None. FINDINGS: Coracoacromial arch: The acromion undersurface is flat in morphology (type I) moderate sized anterior subacromial spur. The coracoacromial ligament is normal. Moderate acromioclavicular osteoarthritis. Rotator cuff: And mild supraspinatus and infraspinatus tendinopathy. There is a partial- thickness articular sided tear at the greater tuberosity footplate of the supraspinatus and conjoined portion of the supraspinatus and infraspinatus tendons. The tear measures 2.3 cm AP along the superior facet and anterior third of the middle facet footplates. With the posterior half of the tear involves no greater than one third of the tendon thickness. The anterior third of the tear involves up to two thirds of the tendon thickness and could not exclude perforation. Remaining articular side of the tendon. Mild to moderate s ubscapularis tendinopathy without discrete tear. The teres minor tendon is normal. Normal rotator cuff muscle bulk and signal. Biceps tendon, glenoid labrum and glenohumeral cartilage: Mild tendinopathy without discrete tear of the intra-articular long head biceps tendon. There is a tear superior to posterior glenoid labrum extending from the 12:00 to 9:00 position. There is a normal anterosuperior some labral foramen. More caudally there is a small tear at the base of the 3:30 position of the anterior glenoid labrum. Mild glenohumeral osteoarthritis with partial-thickness cartilage loss and subtle chondral surface irregularity. Along the medial and anteromedial aspect of the humeral head cartilage appears relatively preserved but with small marginal ossified swelling the anteroinferior glenoid. Fluid: Physiologic amount of fluid in the glenohumeral joint extending into the deep subscapular recess. Small amount of fluid along the long head biceps tendon sheath consistent with mild tenosynovitis. No loose osteochondral bodies. Very small amount of fluid in the subacromial/subdeltoid bursa consistent with mild bursitis. Bones: Bone alignment is normal. No fracture or pathologic marrow replacing process. IMPRESSION: 1. Mild rotator cuff tendinopathy with moderate-sized articular sided tear along the greater tuberosity footplate of the supraspinatus and conjoined portion of the supraspinatus and infraspinatus tendons. 2. Mild glenohumeral osteoarthritis with tear of the superior to posterior glenoid labrum and small tear at the anterior labrum. 3. Moderate acromioclavicular osteoarthritis with mild underlying subacromial/subdeltoid bursitis. 4. Mild bicipital tenosynovitis with mild tendinopathy without discrete tear of the intra-articular long head biceps tendon. Reviewed, dictated and finalized at location A. IMPRESSION: 1. Mild rotator cuff tendinopathy with moderate-sized articular sided tear rossi g the greater tuberosity footplate of the supraspinatus and conjoined portion o f the supraspinatus and infraspinatus tendons. 2. Mild glenohumeral osteoarthritis with tear of the superior to posterior lanette oid labrum and small tear at the anterior labrum. 3. Moderate acromioclavicular osteoarthritis with mild underlying subacromial/s ubdeltoid bursitis. 4. Mild bicipital tenosynovitis with mild tendinopathy without discrete tear of the intra-articular long head biceps tendon.
== END 2024-12-29 07:01 | disposition home or self-care (01) ==
PROVIDERS: PCP Family Medicine; Visit Provider Physician Assistant Medical
DX: M67.814 Other specified disorders of tendon, left shoulder (principal); M19.012 Primary osteoarthritis, left shoulder; S43.432A Superior glenoid labrum lesion of left shoulder, initial encounter; M75.52 Bursitis of left shoulder; M75.22 Bicipital tendinitis, left shoulder; M25.612 Stiffness of left shoulder, not elsewhere classified; R29.898 Other symptoms and signs involving the musculoskeletal system; X58.XXXA Exposure to other specified factors, initial encounter
CPT/HCPCS: 73221

== ENCOUNTER 2025-01-13 07:43 | Outpatient (CLI) | payer OTHER, SELFPAY ==
--- OUTSIDE RECORDS SUMMARY | 2025-01-13 07:48 | XMS_ITS | Clinical Summary ---
Author Organization [facility] [address] Address [address] [place] [address] Care Team Providers Care Hand Straightener Name Role Phone Tc Hightower MD Primary [...] times a day 60 tablet 12/27/2021 Active tamsulosin (FLOMAX) 0.4 mg extended release [...] (09/06/2021): Added automatically from request for surgery [id number] Coronary artery disease invo lving [place] coronary artery of [place] heart without angina pectoris 05/29/2018 Encounters Date Type Department Care Team Description 12/10/2024 9:00 AM CDT Office Visit [facility] Cardiology [address] [place] [address] Montrell Coronado MD Coronary artery disease involving [place] coronary artery of [place] heart without angina pectoris (Primary Dx) from Last 3 Months Surgical History Surgery Date Site/Laterality Comments REPLACEMENT TOTAL KNEE JOINT REPLACEMENT 08/14/2017 COLONOSCOPY MULTIPLE TOOTH EXTRACTIONS ARM SURGERY 12/09/2024 [facility] Medical History Medical History Date Comments CAD [...] on file 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 Gender Identity Not on file Sexual Orientation Not on file Obstetrics History Last Filed Vital Signs Vital Sign Reading Time Taken Comments Blood Pressure 154/78 12/10/2024 8:58 AM CDT Pulse 70 12/10/2024 8:58 AM CDT Temperature 35.7 C (96.2 F) 01/10/2022 9:18 AM CDT Respiratory Rate 18 01/10/2022 9:18 AM CDT Oxygen Saturation 95% 12/10/2024 8:58 AM CDT Inhaled Oxygen Concentration - - Weight 90.4 kg (199 lb 6.4 oz) 12/10/2024 8:58 A M CDT Height 165.1 cm (5' 5) 12/10/2024 8:58 AM CDT Body Mass Index 33.18 12/10/2024 8:58 AM CDT Plan of Treatment Health Maintenance Due Date Last Done Comments Colon Cancer Screening-Colonoscopy 1954 Depression Screening 1954 Hepatitis C Screening 1954 DTaP/Tdap/Td Vaccine (1 - Tdap) 1965 Hepatitis B Screening 1972 Pneumococcal vaccine 65+ (1 of 2 - PCV) 1973 Lung Cancer Screening 2004 Zoster Vaccine (1 of 2) 2004 Abdominal Aortic Aneurysm (A AA) Screen 11/24/2019 Well Visit 65+ 11/24/2019 Fall Risk Assessment 12/27/2022 12/27/2021 Covid-19 Vaccine (5 - 2024-2 6 season) 2024 02/26/2023, 01/09/2021, 06/03/2020, Additional history exists Influenza Vaccine (#1) 2024 Medical Devices Implanted Type Area Musical Therapist Device Identifier Shelf Expiration Date Model / Serial / Lot [employer] Attune L50 Mm Revision Full Coated Knee Sleeve Femoral Porocoat Sterile Latex Free [id number] - [id number] Implanted:Qty: 1 on 12/26/2021 by Avtar Ibarra MD at [facility] Right: Knee [employer] [id number] 04/17/2029 [id number] / / [id number] [employer] Revision Cement Constrain Knee Right 6 Component Femoral Attune Sterile [id number] - [id number] Implanted:Qty: 1 on 12/26/2021 by Avtar Ibarra MD at [facility] Right: Knee [employer] 10/16/2031 [id number] / / [id number] [employer] Smartset Medium Viscosity Cement 40gm Bone Gentamicin [id number] - [id number] Implanted:Qty: 1 on 12/26/2021 by Avtar Ibarra MD at [facility] Right: Knee [employer] 12/15/2022 [id number] / / [id number] [employer] Attune H16 Mm Revision Constrain Rotate Platform Knee 6 Insert Tibial Aox Sterile [id number] - [id number] Implanted:Qty: 1 on 12/26/2021 by Avtar Ibarra MD at [facility] Right: Knee [employer] 03/17/2023 [id number] / / [id number] [employer] Attune 20mm 60mm Revision Press Fit Knee Stem Femoral Sterile Latex Free [id number] - [id number] Implanted:Qty: 1 on 12/26/2021 by Avtar Ibarra MD at [facility] Right: Knee [employer] [id number] 07/16/2031 [id number] / / [id number] [employer] Attune Revision Full Coated Knee 45 Mm Sleeve Tibial Porocoat Sterile Latex Free [id number] - [id number] Implanted:Qty: 1 on 12/26/2021 by Avtar Ibarra MD at [facility] Right: Knee [employer] [id number] 11/16/2031 [id number] / / [id number] [employer] Attune Cement Revision Rotate Platform Knee 6 Baseplate Tibial [id number] - [id number] Implanted:Qty: 1 on 12/26/2021 by Avtar Ibarra MD at [facility] Right: Knee [employer] 05/16/2031 [id number] / / [id number] [employer] Attune 20mm 60mm Revision Press Fit Knee Stem Femoral Sterile Latex Free [id number] - [id number] Implanted:Qty: 1 on 12/26/2021 by Avtar Ibarra MD at [facility] Right: Knee [employer] 07/16/2031 [id number] / / [id number] [employer] Attune H4 Mm Revision Cement Knee Distal 6 Augment Femoral Sterile Latex Free [id number] - [id number] Implanted:Qty: 1 on 12/26/2021 by Avtar Ibarra MD at [facility] Right: Knee [employer] [id number] 09/15/2031 [id number] / / [id number] [employer] Attune H4 Mm Revision Cement Knee Distal 6 Augment Femoral Sterile Latex Free [id number] - [id number] Implanted:Qty: 1 on 12/26/2021 by Avtar Ibarra MD at [facility] Right: Knee [employer] 09/14/2030 [id number] / / [id number] Explanted Type Area Musical Therapist Device Identifier Shelf Expiration Date Model / Serial / Lot Knee Explanted:Qty: 3 on 12/26/2021 by Avtar Ibarra MD at [facility] Bilateral: Knee Description:Femoral, tibia, poly components removed and disposed of per policy. Insurance [facility] Advance Directives For more information, please contact: [phone] * Full Code (Latest Code Status on File) Date Activated Date Inactivated Comments 12/26/2021 5:24 PM 12/27/2021 4:44 PM Care Teams Hand Straightener Relationship Specialty Start Date End Date Tc Hightower MD [address] [facility] [address] [place] [address] PCP - General Family Medicine 05/27/18
[2025-01-13 08:34] LABS: Anion Gap 7 mmol/L (4-12); Blood Urea Nitrogen 15 mg/dL (9-20); Calcium 8.7 mg/dL (8.4-10.2); Carbon Dioxide 29 mmol/L (22-30); Chloride 100 mmol/L (98-107); Estimated Glomerular Filt Rate 55; Glucose 111 mg/dL (65-110); Potassium 3.8 mmol/L (3.4-5.0); Sodium 136 mmol/L (137-145)
== END 2025-01-13 07:44 | disposition home or self-care (01) ==
LOC: ANHSURGERY 07:45
PROVIDERS: Anesthesiology; PCP Family Medicine; Visit Provider Plastic Surgery
DX: N18.30 Chronic kidney disease, stage 3 unspecified (principal)
CPT/HCPCS: 36415; 80048

== ENCOUNTER 2025-01-20 00:51 | Day surgery (SDC) | payer OTHER, SELFPAY ==
[2025-01-11 09:43] VITALS: BMI 31.8
--- NOTE | 2025-01-11 09:44 | PC.NURSE ---
[facility] has started construction of its new state of the art ER which will open Spring 2026. With this, we anticipate parking may be a challenge for some our surgical patients and families. Parking spaces are limited but are available for all Surgical, obstetrics, and ER patients sharing this lot. If you arrive and find you are having a hard time finding a parking space, please note that we understand the challenges, please drive around the hospital and park near Hospital Entrance 1. When you enter this entrance, you can ask a volunteer to direct or take you back to the surgical waiting area to check in. We appreciate everyone?s understanding of these expected challenges while we build for your future. Report to the Outpatient Waiting Room, entrance under the green pavilion [address], at time ___8:30 AM____ on date _01/20/25 . Planned Procedure Time: __10:30 AM .? Time changes happen often and if your time is changed the preop area will call you the afternoon before. - You and your visitor will be asked to self-screen and do not enter if you have any COVID symptoms. Please call surgeon if you need to reschedule. - A mask is optional within the hospital at this time. NOTHING TO EAT OR DRINK 8 HOURS PRIOR TO SURGERY PER DR BAH (2:30 AM) Take only the following medications with a SIP of water on the morning of surgery: NONE DO NOT STOP ANY OF YOUR OTHER PRESCRIPTION MEDICATIONS PRIOR TO SURGERY EXCEPT THE FOLLOWING Hold all vitamins and supplements for 3 days per anesthesiologist. Medications to discontinue per physician ____ASPIRIN PER DR BAH Date to take last dose Please no make-up, nail mohawk, hairspray, perfume, deodorant, or body powder the day of surgery.? No jewelry (including any body piercings) or valuables the day of surgery, leave them at home.? Please take a shower or bath the night before, or the morning of, surgery with an antibacterial soap.? Wear comfortable, loose fitting clothing.? Children are encouraged to wear pajamas. - Jewelry must be removed prior to entering the operating room.? Rings and piercings that are not removed may be cut off. - The hospital will not accept responsibility for valuables.? - Please leave all valuables, including medications, at home the day of surgery. If you are going home after surgery, a licensed backhaul driver must drive you home.? - NO public transportation without another adult if you receive anesthesia. - We recommend that an adult stay with you for 24 hours following discharge. - We also recommend that you do not drive, make important decision, drink alcoholic beverages, or take any drugs that were not prescribed by your health care provider for at least 24 hours after your discharge time. For Pediatric surgeries, we recommend two adults accompany the child home. Follow any additional instructions given to you from your surgeon. Telephone instructions given to __PATIENT and asked if any additional questions and then verbalized understanding. Patient advised to call surgeon office or pre surgery nurse liaison [phone] if any additional questions.
--- OUTSIDE RECORDS SUMMARY | 2025-01-20 00:53 | XMS_ITS | Clinical Summary ---
Author Organization [facility] [address] Address [address] [place] [address] Care Team Providers Care Order Puller Name Role Phone Tc Hightower MD Primary [...] (09/06/2021): Added automatically from request for surgery [id number] Coronary artery disease invo lving [place] coronary artery of [place] heart without angina pectoris 05/29/2018 Encounters Date Type Department Care Team Description 12/10/2024 9:00 AM CDT Office Visit [facility] Cardiology [address] [place] [address] Montrell Coronado MD Coronary artery disease involving [place] coronary artery of [place] heart without angina pectoris (Primary Dx) from Last 3 Months Surgical History Surgery Date Site/Laterality Comments REPLACEMENT TOTAL KNEE JOINT REPLACEMENT 08/14/2017 COLONOSCOPY MULTIPLE TOOTH EXTRACTIONS ARM SURGERY 12/09/2024 [facility] Medical History Medical History Date Comments CAD [...] on file 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 Gender Identity Not on file Sexual Orientation [...] Fall Risk Assessment 12/27/2022 12/27/2021 Covid-19 Vaccine (2024-2 6 season) 2024 02/26/2023, 01/09/2021, 06/03/2020, Additional history exists Influenza Vaccine (#1) 2024 Medical Devices Implanted Type Area Bone Worker Device Identifier Shelf Expiration Date Model / Serial / Lot [employer] Attune L50 Mm Revision Full Coated Knee Sleeve Femoral Porocoat Sterile Latex Free [id number] - [id number] Implanted:Qty: 1 on 12/26/2021 by Avtar Ibarra MD at [facility] Right: Knee [employer] [id number] 04/17/2029 [id number] / / [id number] [employer] Revision Cement Constrain Knee Right 6 Component Femoral Attune Sterile [id number] - [id number] Implanted:Qty: 1 on 12/26/2021 by Avtar Ibarra MD at [facility] Right: Knee [employer] 10/16/2031 [id number] / / [id number] [employer] Smartset Medium Viscosity Cement 40gm Bone Gentamicin [id number] - [id number] Implanted:Qty: 1 on 12/26/2021 by Avtar Ibarra MD at [facility] Right: Knee [employer] 12/15/2022 [id number] / / [id number] [employer] Attune H16 Mm Revision Constrain Rotate Platform Knee 6 Insert Tibial Aox Sterile [id number] - [id number] Implanted:Qty: 1 on 12/26/2021 by Avtar Ibarra MD at [facility] Right: Knee [employer] 03/17/2023 [id number] / / [id number] [employer] Attune 20mm 60mm Revision Press Fit Knee Stem Femoral Sterile Latex Free [id number] - [id number] Implanted:Qty: 1 on 12/26/2021 by Avtar Ibarra MD at [facility] Right: Knee [employer] [id number] 07/16/2031 [id number] / / [id number] [employer] Attune Revision Full Coated Knee 45 Mm Sleeve Tibial Porocoat Sterile Latex Free [id number] - [id number] Implanted:Qty: 1 on 12/26/2021 by Avtar Ibarra MD at [facility] Right: Knee [employer] [id number] 11/16/2031 [id number] / / [id number] [employer] Attune Cement Revision Rotate Platform Knee 6 Baseplate Tibial [id number] - [id number] Implanted:Qty: 1 on 12/26/2021 by Avtar Ibarra MD at [facility] Right: Knee [employer] 05/16/2031 [id number] / / [id number] [employer] Attune 20mm 60mm Revision Press Fit Knee Stem Femoral Sterile Latex Free [id number] - [id number] Implanted:Qty: 1 on 12/26/2021 by Avtar Ibarra MD at [facility] Right: Knee [employer] 07/16/2031 [id number] / / [id number] [employer] Attune H4 Mm Revision Cement Knee Distal 6 Augment Femoral Sterile Latex Free [id number] - [id number] Implanted:Qty: 1 on 12/26/2021 by Avtar Ibarra MD at [facility] Right: Knee [employer] [id number] 09/15/2031 [id number] / / [id number] [employer] Attune H4 Mm Revision Cement Knee Distal 6 Augment Femoral Sterile Latex Free [id number] - [id number] Implanted:Qty: 1 on 12/26/2021 by Avtar Ibarra MD at [facility] Right: Knee [employer] 09/14/2030 [id number] / / [id number] Explanted Type Area Bone Worker Device Identifier Shelf Expiration Date Model / Serial / Lot Knee Explanted:Qty: 3 on 12/26/2021 by Avtar Ibarra MD at [facility] Bilateral: Knee Description:Femoral, tibia, poly components removed and disposed of per policy. Insurance [facility] Member Subscriber Plan / Payer (Ef fective 2021-Present) Name:Daniel Loomis Relation to Subscriber:Self Name:Ziontheeholly Daniel R Payer ID:[id number] (NAIC) Type:MEDICARE RISK OTHER Address: [address] [facility] Advance Directives For more information, please contact: [phone] * Full Code (Latest Code Status on File) Date Activated Date Inactivated Comments 12/26/2021 5:24 PM 12/27/2021 4:44 PM Care Teams Order Puller Relationship Specialty Start Date End Date Tc Hightower MD [address] [facility] [address] [place] [address] PCP - General Family Medicine 05/27/18
--- NOTE | 2025-01-20 06:35 | P.OP_ITS ---
Procedure Note - Detailed Date of Procedure 01/20/25 Pre-op Diagnosis jayme carpal and cubital tunnel synd Post-op Diagnosis Same Procedure Performed right ectr and CuTR Surgeon Rolando Panda MD On Air Announcer Darrell Jesus PA-C Anesthesia MAC Description of Procedure INFORMED CONSENT: The patient was seen and examined and marked in the pre-op area.? The patient signed the consent form. PROCEDURE IN DETAIL:The patient taken back to OR on the stretcher in supine position. Time out performed with anesthesia, surgeon and staff agreeing on patient's name site and surgery to be performed SCDs were placed on the lower extremities and inflated. A tourniquet was placed on {right} upper extremity and antibiotics given IV After anesthesia administered sedation I injected {10}cc 1%lido with epi and 0.5% marcaine plain at the operative sites The?{right upper extremity}?was prepped and draped in sterile fashion the??{right upper extremity} was? exsanguinated with Esmarch bandage and tourniquet inflated to 250mmHg I made a transverse incision in the {right} volar distal wrist crease through skin and dermis with 15 blade scalpel.? Littler scissors spread down to antebrachial fascia. A small incision was made in antebrachial fascia allowing access to Carpal tunnel. I proceeded with sequential dilation staying in line with the ring finger and hugging the hook of the hamate.? I then used the synovial elevator to free any adhesions from the underside of the transverse carpal ligament. Next I was able to insert the Microaire endoscopic carpal tunnel device with direct visualization of the transverse fibers on the monitor and proceeded with complete segmental retrograde release of the ligament in its entirety.? I irrigated with normal saline and closed with 4-0 monocryl for dermis and subcuticular closure. I next proceeded with making a longitudinal incision between two heads for flexor carpi ulnaris at end of {right} cubital tunnel with 15 blade scalpel.? Littler scissors were used to spread down to FCU fascia.? An incision was made in FCU fascia and ulnar nerve identified exiting cubital tunnel.? I proceeded with complete retrograde release of the cubital tunnel including 7cm proximal for the intermuscular septum.? The nerve appeared healthy with visible vaso nervorum.? There was no subluxation on full elbow range of motion. ? I irrigated with normal saline and closure with 4-0 monocryl for dermis and subcuticular. The incisions were covered with Dermabond then 4x4s, layne, and a posterior elbow and volar wrist splint for patient safety, security and comfort and secured with nelly bandages after the tourniquet was let down noting the hand was warm and well perfused.? Patient awaken from anesthesia and transferred to recovery in stable condition Complications - none EBL- 1cc Disposition - home in stable condition Darrell Jesus PA-C was essential for positioning, retraction, closure and dressing placement. G Billing Surgery - Charge Forward: Surgery Billing ([id number] same for darrell adding )
--- NOTE | 2025-01-20 06:35 | WPDHPUPDATE1 ---
History and Physical Update Update Date/Time: 01/20/25 06:35 Patient seen and examined in pre-operative holding area. No interval change in medical history or symptoms. Patient recalls previous discussion of benefits and alternatives to procedure. Continues to desire to proceed with right endoscopic possible open carpal tunnel release and right cubital tunnel release . Reviewed procedure, post-op expectations and risks including but not limited to bleeding, infection, injury to tendon/nerve/vessel, decreased hand function, stiffness, RSD, no change or worsening of symptoms. I discussed the possible use of assistants and their participation in the case. Patient stated understanding and signed the consent form wishing to proceed.
[2025-01-20 08:55] VITALS: BP 160/69; PULSE 81; RESP 18; TEMP 36.7; O2SAT 97
[2025-01-20] MEDS: ACETAMINOPHEN 500 MG TABLET 1000 MG PO (09:00)
[2025-01-20] MEDS: LACTATED RINGERS 1,000 ML 30 ML IV CONT (09:05)
--- NOTE | 2025-01-20 10:24 | P.PNAN_ITS ---
Anes - Initial Pre Proc Eval Procedure: Operation Date: 01/20/25 10:30 Proposed Procedures p Right Endoscopic Carpal Tunnel Release, Possible Open, Right Cubital Tunnel Release - Rolando Panda MD Date/Time: 01/20/25 10:24 Surgeon: Rolando Panda MD Pre Op Diagnosis: jayme carpal and cubital tunnel synd Patient Data Age: 69 Gender: M Height: 1.68 m Weight: 89 kg Last Vital Signs Temp 36.7 C 01/20/25 08:55 Pulse 81 01/20/25 08:55 Resp 18 01/20/25 08:55 BP 160/69 H 01/20/25 08:55 Pulse Ox 97 01/20/25 08:55 O2 Del Method Room Air 01/20/25 08:55 Allergies Allergy/AdvReac Type Severity Reaction Status Date / Time bupropion (From Wellbutrin) AdvReac Intermediate Blister Verified 01/20/25 10:10 Home Medications ?Medication ?Instructions ?Recorded ?Confirmed ?Type aspirin 81 mg tablet,delayed 81 mg PO DAILY #1 tablet 02/23/21 01/20/25 Rx release tamsulosin 0.4 mg capsule 0.4 mg PO BID #180 caps 11/0801/20/25 Rx oxybutynin chloride 15 mg 15 mg PO DAILY 08/06/2408/09 History tablet,extended release 24 hr lisinopril 20 mg tablet 20 mg PO DAILY #90 tabs 08/1701/20/25 Rx tramadol 50 mg tablet 50 mg PO Q6H PRN pain #12 ta bs 01/20/25 Rx Patient hx anesthesia problems: none Family hx anesthesia problems: none Results Review: All pre-operative results and documents have been reviewed as part of the pre- operative evaluation. [facility] Past Medical History Medical History Right hip pain Lumbar radiculopathy BPH w urinary obs/LUTS CKD (chronic kidney disease), stage III Hypertensive heart and CKD Family History Family History Father Family history of cardiovascular disease Mother Diabetes mellitus Social History Social History Social History: Caffeine-soda Smoking packs per day: 0 Smoking cigarettes per day: 0.0 Years smoked: 40 Smoking pack-years: 0.00 Smoking status: Former smoker Tobacco type: cigarettes Smoking end date: 03/18/19 Alcohol intake: current Alcohol use details: occasional Substance use: never Substance use type: does not use Living arrangements: with family Occupation/Education: retired Gender identity (if verbalized by the patient): Male Sexual Orientation (if Verbalized by the Patient): Straight or Heterosexual Spiritual care concerns: No Anes - Eval Final PreProcedure Day of Procedure 01/20/25 10:24 Patient weight: overweight Heart: regular rate and rhythm Lungs: decreased breath sounds Airway: Mallampati scale class II Neurological: alert and oriented Last oral intake: >/= 8 hours ASA classification: III Emergent: no Anesthetic plan: proceed Anesthesia type and monitoring: general GIVS and standard monitoring Results Review: All pre-operative results and documents have been reviewed as part of the pre- operative evaluation. Informed Consent: The patient's anesthetic plan and its attendant risks and benefits were discussed with the patient/family/POA. Questions were solicited and answers provided to the satisfaction of the patient/family/POA.
[2025-01-20] MEDS: ceFAZolin 2 GM in SODIUM CHLORIDE 0.9% IV 50 ML 100 ML IVPB (10:26)
[2025-01-20] MEDS: BUPivacaine HCL 0.5% 10 ML AMP 5 ML INFILTRATE (10:33)
[2025-01-20] MEDS: LIDO 1%/EPINEPHRINE 1:100,000 50 ML VIAL (10:34)
[2025-01-20 10:56] VITALS: BP 161/72; PULSE 62
[2025-01-20 11:26] VITALS: BP 161/72; PULSE 64
[2025-01-20 11:56] VITALS: BP 168/66; PULSE 62
[2025-01-20 12:30] VITALS: BP 171/65; PULSE 67
== END 2025-01-20 12:30 | disposition home or self-care (01) ==
PROVIDERS: PCP Family Medicine; Visit Provider Plastic Surgery
PROC: 01N54ZZ Release Median Nerve, Percutaneous Endoscopic Approach (ICD-10-PCS; CPT 29848; principal; 2025-01-20 10:30)
DX: G56.01 Carpal tunnel syndrome, right upper limb (principal); G56.21 Lesion of ulnar nerve, right upper limb; I12.9 Hypertensive chronic kidney disease with stage 1 through stage 4 chronic kidney disease, or unspecified chronic kidney disease; N18.30 Chronic kidney disease, stage 3 unspecified; N40.1 Benign prostatic hyperplasia with lower urinary tract symptoms; Z79.82 Long term (current) use of aspirin; Z79.891 Long term (current) use of opiate analgesic; Z87.891 Personal history of nicotine dependence; Z82.49 Family history of ischemic heart disease and other diseases of the circulatory system
CPT/HCPCS: 64718; 29848; J0690; A9270; J2003; J2004; J2250; J2704; J3010; J7120